=== PATIENT | male | born 1955 | race Caucasian/White ===

== ENCOUNTER 2018-01-26 01:29 | Emergency (ER) | payer OTHER, MEDICARE, MEDICAID ==
[2018-01-26 02:03] LABS: ADD MAN DIFF? NO
[2018-01-26 02:05] LABS: WHITE BLOOD COUNT 15.2 10^3/ul (4.8-10.8)
[2018-01-26 02:05] LABS: BASOPHILS % 0.2 % (0.0-2.0); EOSINOPHILS % 0.2 % (0.0-7.0); HEMOGLOBIN 11.8 g/dl (14.0-18.0); LYMPHOCYTES # 0.6 10^3/ul (0.8-2.9); LYMPHOCYTES % 4.2 % (15.0-51.0); MEAN CORPUSCULAR HEMOGLOBIN 30.3 pg (29.0-33.0); MEAN CORPUSCULAR HGB CONC 32.8 g/dl (32.0-37.0); MEAN CORPUSCULAR VOLUME 92.3 fl (82.0-101.0); MEAN PLATELET VOLUME 9.5 fl (7.4-10.4); MONOCYTE # 0.7 10^3/ul (0.3-0.9); MONOCYTES % 4.7 % (0.0-11.0); NEUTROPHIL # 13.8 10^3/ul (1.6-7.5); NEUTROPHILS % 90.3 % (39.0-77.0); PLATELET COUNT 298 10^3/UL (140-415); RED CELL DISTRIBUTION WIDTH 13.7 % (11.5-14.5)
[2018-01-26] MEDS: LORAZEPAM 2 MG INJ IV (02:08)
[2018-01-26] MEDS: SOD CHLORIDE 0.9% 250 ML IV (02:10)
[2018-01-26 02:24] LABS: INR 0.99; PROTIME 13.2 Sec (11.9-14.9)
[2018-01-26 02:25] LABS: PARTIAL THROMBOPLASTIN TIME 27.9 Sec (23.0-35.0)
[2018-01-26 02:26] LABS: ANION GAP 18 (5-13); BLOOD UREA NITROGEN 46 mg/dl (7-20); CALCIUM 9.4 mg/dl (8.4-10.2); CARBON DIOXIDE 27 mmol/L (21-31); CHLORIDE 97 mmol/L (97-110); CREATININE 9.62 mg/dl (0.61-1.24); Estimated GFR 6 mL/min (>60); GLUCOSE 268 mg/dl (70-220); SODIUM 142 mmol/L (135-144)
== END 2018-01-26 06:24 | disposition home or self-care (01) ==
LOC: E/R 01:29
DX: G40.909 Epilepsy, unspecified, not intractable, without status epilepticus (principal); R40.2142 Coma scale, eyes open, spontaneous, at arrival to emergency department; R40.2362 Coma scale, best motor response, obeys commands, at arrival to emergency department; R40.2252 Coma scale, best verbal response, oriented, at arrival to emergency department; N18.6 End stage renal disease; D72.829 Elevated white blood cell count, unspecified; Z99.2 Dependence on renal dialysis
CPT/HCPCS: 36415; 70450; 80048; 82962; 85025; 85610; 85730; 96374; 99285-25